=== PATIENT | male | born 1980 | race Caucasian/White ===

== ENCOUNTER 2021-11-29 14:02 | Emergency (ER) | payer BC ==
[2021-11-29 14:44] VITALS: RESP 18; TEMP 98.7
[2021-11-29] MEDS ORDERED: ALPRAZolam 0.25 MG TAB PO STA (17:24)
--- NOTE | 2021-11-29 17:29 | ED ---
General Adult HPI - General Chief complaint: ENT Stated complaint: loss of hearing in left ear Time Seen by Provider: 11/29/21 17:10 Source: patient, RN notes reviewed, old records reviewed Mode of arrival: ambulatory - History of Present Illness Initial comments: 41-year-old male presents to the emergency room anxious complaining of left ear hearing loss at 8:30 this morning. Patient states that he has a history of tinnitus for several years however today the tones changed and then he suddenly lost HEARING in his left ear while driving. He denies any pain. He denies any weakness. No headaches, no fevers, no vision changes and no recent illnesses. He did get a flu shot yesterday. He states he used to abuse alcohol but has not had a drink in four years. -: hour(s) (8) Location: left (ear) Severity scale (1-10): 0 Associated Symptoms: denies other symptoms Treatments Prior to Arrival: none - Related Data Previous Rx's Medication Instructions Recorded predniSONE [Deltasone] 20 mg PO BID 7 Days #14 tab 11/29/21 Allergies Allergy/AdvReac Type Severity Reaction Status Date / Time No Known Allergies Allergy Verified 11/29/21 14:44 Review of Systems ROS Statement: Those systems with pertinent positive or pertinent negative responses have been documented in the HPI. ROS Other: All systems not noted in ROS Statement are negative. Past Medical History Past Medical History: No Reported History History of Any Multi-Drug Resistant Organisms: None Reported Past Surgical History: No Surgical Hx Reported Past Psychological History: Anxiety Smoking Status: Never smoker Past Alcohol Use History: None Reported Past Drug Use History: None Reported General Exam General appearance: alert, in no apparent distress Head exam: Present: atraumatic, normocephalic, normal inspection Eye exam: Present: normal appearance, EOMI. Absent: scleral icterus, conjunctival injection, nystagmus Pupils: Present: normal accommodation ENT exam: Present: normal exam, normal oropharynx, mucous membranes moist Neck exam: Present: normal inspection, full ROM. Absent: tenderness, meningismus Cardiovascular Exam: Present: regular rate Neurological exam: Present: alert, oriented X3, CN II-XII intact, normal gait. Absent: motor sensory deficit Expanded Patient oriented to: Present: person, place, time Speech: Present: fluid speech Cranial nerves: EOM's Intact: Normal, Tongue Deviation: Normal, Facial Sensation: Normal Cerebellar function: Heel to [place]: Normal, [place]: Normal Motor strength exam: RUE: 5, LUE: 5, RLE: 5, LLE: 5 Eye Response: (4) open spontaneously Motor Response: (6) obeys commands Verbal Response: (5) oriented [place] Total: 15 Psychiatric exam: Present: anxious Skin exam: Present: warm, dry, intact. Absent: cyanosis, diaphoretic Course Vital Signs 11/29/21 11/29/21 14:38 18:18 Temperature 98.7 F Pulse Rate 78 85 Respiratory 18 18 Rate Blood Pressure 150/85 133/86 O2 Sat by Pulse 97 96 Oximetry Medical Decision Making - Medical Decision Making Patient states that he developed sudden loss of hearing in his left ear today at 8:30. He denies any pain he has no focal neurological deficits. No medical history. He has had a history of tinnitus in his left ear. Tympanic membrane is clear there is no evidence of cerumen impaction. During the hum test the patient states that the hum is louder in his unaffected ear consistent with sensorineural hearing loss. I did talk with Dr. Reyes who states that he will see the patient this week in the office. This is likely sensorineural hearing loss and he recommended prednisone 20 mg twice a day for 7 days until seen. The patient was given referral to Dr. Reyes directed to return to the emergency room with any new or worsening symptoms. Patient is agreeable to this plan of care. Case discussed with Dr. Mendoza. Disposition Clinical Impression: Hearing loss Disposition: HOME SELF-CARE Condition: Good Instructions (If sedation given, give patient instructions): Hearing Loss (ED) Additional Instructions: Follow up with the ear nose and throat doctor, Dr. Reyes this week. Return to the emergency room if any new or concerning symptoms including one sided weakness, fevers, vision changes or severe headache. Prescriptions: predniSONE [Deltasone] 20 mg PO BID 7 Days #14 tab Is patient prescribed a controlled substance at d/c from ED?: No Referrals: None,Stated [Primary Care Provider] - 1-2 days Marcos David MD [STAFF PHYSICIAN] - 1-2 days Time of Disposition: 17:52
[2021-11-29 18:20] VITALS: BP 133/86; PULSE 85
== END 2021-11-29 18:20 | disposition home or self-care (01) ==
LOC: EC 14:02
DX: H91.92 Unspecified hearing loss, left ear (principal); F41.9 Anxiety disorder, unspecified
CPT/HCPCS: 99282